=== PATIENT | male | born 1980 | race Caucasian/White ===

== ENCOUNTER 2019-06-11 12:32 | Emergency (ER) | payer OTHER ==
[2019-06-11 12:46] VITALS: BP 152/93
--- NOTE | 2019-06-11 13:10 | UC ---
Back Pain HPI - HPI Summary HPI Summary: Mr. Snyder has a history of low back problems. When he was in his 20s there particularly bad and he took Tylenol with Codeine and methocarbamol. Over the subsequent years he's had a few flareups which she's been able to manage at home. Tuesday evening he started with pain in the same area of his low back. It gradually worsened and yesterday he was basically in bed all day. He has no trouble urinating or moving his bowels. His legs are not weak. It hurts to move and is better when he is lying down. He has taken some ibuprofen and Tylenol. - History of Current Complaint Chief Complaint: UCBackPain Stated Complaint: LOWER BACK PAIN Time Seen by Provider: 06/11/19 12:44 Hx Obtained From: Patient Onset/Duration: Gradual Onset Timing: Constant, Lasting Days Severity Initially: Severe Severity Currently: Severe Pain Intensity: 8 Back Pain: Is Discrete @ - Low back Character: Sharp, Spasmodic Aggravating Factor(s): Movement, Lifting, Bending, Walking Alleviating Factor(s): Nothing Associated Signs And Symptoms: Positive: Negative - Allergies/Home Medications Allergies/Adverse Reactions: Allergies Allergy/AdvReac Type Severity Reaction Status Date / Time No Known Allergies Allergy Verified 06/11/19 12:46 Home Medications: Home Medications Ibuprofen 600 mg PO ONCE 06/11/19 [History Confirmed 06/11/19] PMH/Surg Hx/FS Hx/Imm Hx Previously Healthy: Yes - Surgical History Surgical History: Yes Surgery Procedure, Year, and Place: t&a - Social History Alcohol Use: Rare Substance Use Type: None Smoking Status (MU): Never Smoked Tobacco Review of Systems All Other Systems Reviewed And Are Negative: Yes Musculoskeletal: Positive: Decreased ROM Neurological: Positive: Negative Physical Exam - Summary Physical Exam Summary: He is nontoxic in appearance with stable vitals but in obvious pain. Triage Information Reviewed: Yes Appearance: Obese Vital Signs: Initial Vital Signs Temp 96.8 F 06/11/19 12:42 Pulse 64 06/11/19 12:42 Resp 18 06/11/19 12:42 BP 152/93 06/11/19 12:42 Pulse Ox 99 06/11/19 12:42 Vital Signs Reviewed: Yes ENT Exam: Normal Respiratory Exam: Normal Abdominal Exam: Normal Musculoskeletal Exam: Other - Positive straight leg raise. Positive tenderness to paralumbar spine Neurological Exam: Normal Back Pain Course/Dx - Course Course Of Treatment: This is likely musculoskeletal and most likely a disc issue. He may at some point need an MRI scan. I recommended treatment with tramadol and methocarbamol. - Differential Dx/Diagnosis Provider Diagnosis: Low back strain Discharge ED - Sign-Out/Discharge Documenting (check all that apply): Patient Departure All imaging exams completed and their final reports reviewed: No Studies - Discharge Plan Condition: Stable Disposition: HOME Patient Education Materials: Low Back Strain (ED) Referrals: Deep Agosto MD [Primary Care Provider] - - Billing Disposition and Condition Condition: STABLE Disposition: Home
--- OUTSIDE RECORDS SUMMARY | 2019-06-12 16:24 | XMS REPORT | Continuity of Care Document ---
:1980 External Reference #:[id number] Author Name Deep Agosto M.D. (transmitted by agent of provider Viviana Bender ) Address [address], [place] [address] Care Team Providers Name Role Phone Deep Agosto III, MD - Internal Care Team Information Java Sybase Developer Medicine [facility] - Care Team Information Java Sybase Developer Gage Maker Problems Description No Information Available Social History Type Date Description Comments Sex Unknown ETOH Use Occasionally consumes alcohol Tobacco Use Start: Unknown End: Patient is a former 1 ppd max from age Unknown smoker 17-25 Recreational Drug Use Sporadically uses Marijuana Smoking Status Reviewed: 04/23/19 Patient is a former 1 ppd max from age smoker 17-25 Exercise Type/Frequency Exercises regularly swims om occ, some weights, karate, active around the house Allergies, Adverse Reactions, Alerts Description No Known Drug Allergies Medications Active Medications SIG Qnty Indications Ordering Provider Date Benzonatate 1-2 tab by mouth 30caps J20.9 Deep Agosto, 04/23/2019 100mg three times a M.D. Capsules day as needed Proair HFA 2 puffs by mouth 1units J20.9 Deep Agosto, 04/23/2019 108(90Base) four times a day M.D. mcg/Act Aerosol as needed History Medications No Active Medications Unknown 01/23/2019 - 04/23/2019 Immunizations CPT Code Status Date Vaccine Lot # [id number] Given 01/23/2019 Pneumonia Vaccine [id number] Given 01/23/2019 Tdap - Tetanus/Diptheria/Acellular Pertussis [id number] Vital Signs Date Vital Result Comment 04/23/2019 1:58pm Height 73 inches 6'1" Weight 350.00 lb Heart Rate 70 /min BP Systolic Sitting 134 mmHg BP Diastolic Sitting 80 mmHg Body Temperature 98.1 F O2 % BldC Oximetry 98 % BMI (Body Mass Index) 46.2 kg/m2 01/23/2019 10:21am Height 73 inches 6'1" Weight 354.00 lb Heart Rate 69 /min BP Systolic Sitting 132 mmHg BP Diastolic Sitting 88 mmHg O2 % BldC Oximetry 97 % BMI (Body Mass Index) 46.7 kg/m2 Results Test Date Facility Test Result H/L Range Note Comp Metabolic 02/02/2019 [facility] Sodium 139 mmol/L Normal 135-[address] [place] [address] [phone] Potassium 4.7 mmol/L Normal 3.5-5.0 Chloride 105 mmol/L Normal 101-111 Co2 Carbon Dioxide 29 mmol/L Normal 22-32 Anion Gap 5 mmol/L Normal 2-11 Glucose 111 mg/dL High 70-100 Blood Urea Nitrogen 14 mg/dL Normal 6-24 Creatinine 0.90 mg/dL Normal 0.67-1.17 BUN/Creatinine Ratio 15.6 Normal 8-20 Calcium 9.5 mg/dL Normal 8.6-10.3 Total Protein 7.6 g/dL Normal 6.4-8.9 Albumin 4.2 g/dL Normal 3.2-5.2 Globulin 3.4 g/dL Normal 2-4 Albumin/Globulin Ratio 1.2 Normal 1-3 Total Bilirubin 0.40 mg/dL Normal 0.2-1.0 Alkaline Phosphatase 79 U/L Normal 34-104 Alt 81 U/L High 7-52 Ast 38 U/L Normal 13-39 Egfr Non- 95.0 >60 Egfr 114.9 >60 1 Laboratory test 02/02/2019 [facility] GGTP 35 U/L Normal 9- 64.[address] [place] [address] [phone] Lipid Profile 02/02/2019 [facility] Triglycerides 141 2 (Trig/Chol/HDL) [address] mg/[place] [address] [phone] Cholesterol 156 mg/dL 3 HDL Cholesterol 34.9 mg/dL 4 LDL Cholesterol 93 mg/dL 5 Urinalysis Profile 01/23/2019 [facility] Urine Color Yellow [address] [place] [address] [phone] Urine Appearance Cloudy Urine Specific [place] 1.015 Normal 1.010-1.030 Urine pH 7.0 Normal 5-9 Urine Urobilinogen Negative Negative Urine Ketones Negative Negative Urine Protein Negative Negative Urine Leukocytes Negative Negative Urine Blood Negative Negative Urine Nitrite Negative Negative Urine Bilirubin Negative Negative Urine Glucose Negative Negative 1 Because ethnic data is not always readily available, this report includes an eGFR for both -Americans and non- Americans. The National Kidney Disease Education Program (NKDEP) does not endorse the use of the MDRD equation for patients that are not between the ages of 18 and 70, are , have extremes of body size, muscle mass, or nutritional status, or are non- or non-. According to the National Kidney Foundation, irrespective of diagnosis, the stage of the disease is based on the level of kidney function: Stage Description GFR(mL/min/1.73 m(2)) 1 Kidney damage with normal or decreased GFR 90 2 Kidney damage with mild decrease in GFR 60-89 3 Moderate decrease in GFR 30-59 4 Severe decrease in GFR 15-29 5 Kidney failure <15 (or dialysis) 2 Desirable: <150 Borderline High: 150-199 High: 200-499 Very High: >500 3 Desirable: <200 Borderline High: 200-239 High: >239 4 Low: <40 Desirable: 40-60 High: >60 5 Desirable: <100 Near Optimal: 100-129 Borderline High: 130-159 High: 160-189 Very High: >189 6 [id number] Procedures Description No Information Available Medical Devices Description No Information Available Encounters Type Date Location Provider Dx Diagnosis Office Visit 01/23/2019 [facility] J45.990 Exercise induced 10:20a Medicine - Jewel Agosto M.D. bronchospasm K76.0 Fatty (change of) liver, not elsewhere classified Z13.220 Encounter for screening for lipoid disorders Z23 Encounter for immunization Assessments Date Code Description Provider 04/23/2019 J20.9 Acute bronchitis, unspecified Deep Agosto M.D. 01/23/2019 J45.990 Exercise induced bronchospasm Deep Agosto M.D. 01/23/2019 K76.0 Fatty (change of) liver, not elsewhere Deep Agosto M.D. classified 01/23/2019 Z13.220 Encounter for screening for lipoid Deep Agosto M.D. disorders 01/23/2019 Z23 Encounter for immunization Deep Agosto M.D. Plan of Treatment 04/23/2019 - Deep Agosto M.D.J20.9 Acute bronchitis, unspecifiedNew Medication:Benzonatate 100 mg - 1-2 tab by mouth three times a day as neededProair HFA 108(90 Base) mcg/Act - 2 puffs by mouth four times a day as neededComments:Likely viral; some faint wheezing on exam, so regular Albuterol use 4 times a day advised for now. Rx for Benzonatate sent in for additional cough sx. Continue DayQuil as needed. R eardrum a bit hyperemic, but no ear sx - observation advised, but call if any ear pain/pressure sx noted Functional Status Description No Information Available Mental Status Description No Information Available Referrals Refer to Reason for Referral Status Appt Date [facility] [employer] [facility] hx of fatty liver; weight loss Closed 03/14 diet education/Rx options [address] [place] [address] [phone]
== END 2019-06-11 13:28 | disposition home or self-care (01) ==
LOC: UCEAST 12:32
DX: S39.012A Strain of muscle, fascia and tendon of lower back, initial encounter (principal); X58.XXXA Exposure to other specified factors, initial encounter; Y92.9 Unspecified place or not applicable
CPT/HCPCS: 99212; G0463